=== PATIENT | male | born 1935 | race Caucasian/White ===

== ENCOUNTER 2016-10-12 10:22 | Outpatient (CLI) | payer MEDICARE, BC, OTHER | END 2016-10-12 23:59 | DX: R19.7 Diarrhea, unspecified (principal) ==

== ENCOUNTER 2016-10-23 08:00 | Outpatient (CLI) | payer MEDICARE, BC, OTHER | END 2016-10-23 23:59 | DX: R53.83 Other fatigue (principal); G20 Parkinson's disease; E55.9 Vitamin D deficiency, unspecified; I10 Essential (primary) hypertension; K58.9 Irritable bowel syndrome, unspecified; Z12.5 Encounter for screening for malignant neoplasm of prostate; N18.3 Chronic kidney disease, stage 3 (moderate) | CPT/HCPCS: 36415; 80053; 82306; 84443; 85025; G0103 ==

== ENCOUNTER 2016-10-27 05:00 | Outpatient (CLI) | payer MEDICARE, BC, OTHER | END 2016-10-27 05:01 | disposition home or self-care (01) | DX: R19.7 Diarrhea, unspecified (principal) ==

== ENCOUNTER 2016-10-31 12:30 | Day surgery (SDC) | payer MEDICARE, BC, OTHER ==
[2016-10-31] MEDS ORDERED: LACTATED RINGERS 1,000 ML IV ONE (13:08)
[2016-10-31] MEDS ORDERED: fentaNYL 100 MCG/2 ML VIAL IVP ONE (15:09)
[2016-10-31] MEDS ORDERED: MIDAZOLAM 2 MG/2 ML VIAL IVP ONE (15:09)
== END 2016-10-31 12:31 | disposition home or self-care (01) ==
PROC: 0DBE8ZX Excision of Large Intestine, Via Natural or Artificial Opening Endoscopic, Diagnostic (ICD-10-PCS; 2016-10-31)
PROC: 0DBM8ZX Excision of Descending Colon, Via Natural or Artificial Opening Endoscopic, Diagnostic (ICD-10-PCS; principal; 2016-10-31 14:00)
DX: R19.7 Diarrhea, unspecified (principal); K52.832 Lymphocytic colitis; D12.4 Benign neoplasm of descending colon; K57.30 Diverticulosis of large intestine without perforation or abscess without bleeding; R23.3 Spontaneous ecchymoses; K64.0 First degree hemorrhoids; R63.4 Abnormal weight loss; K21.9 Gastro-esophageal reflux disease without esophagitis; Z88.2 Allergy status to sulfonamides; Z68.27 Body mass index [BMI] 27.0-27.9, adult
CPT/HCPCS: 45380; 45385; J7120

== ENCOUNTER 2017-01-31 12:33 | Outpatient (CLI) | payer MEDICARE, BC, OTHER | END 2017-01-31 12:34 | LOC: LAB.WCP 12:33 | PROVIDERS: ATTEND Family Medicine | DX: K52.9 Noninfective gastroenteritis and colitis, unspecified (principal) | CPT/HCPCS: 81599 ==

== ENCOUNTER 2017-04-11 09:04 | Outpatient (CLI) | payer MEDICARE, BC, OTHER | END 2017-04-11 09:05 | disposition home or self-care (01) | LOC: DI 09:04 | PROVIDERS: ATTEND Internal Medicine Cardiovascular Disease | DX: R00.2 Palpitations (principal); I45.2 Bifascicular block; E78.01 Familial hypercholesterolemia; G47.20 Circadian rhythm sleep disorder, unspecified type; R25.9 Unspecified abnormal involuntary movements | CPT/HCPCS: 93306 ==

== ENCOUNTER 2017-05-02 14:35 | Outpatient (CLI) | payer MEDICARE, BC, OTHER ==
[2017-05-02 13:56] LABS: HEMOGLOBIN A1C 0.53 g/dL
== END 2017-05-02 14:36 | disposition home or self-care (01) ==
LOC: LAB.WCP 14:35
PROVIDERS: ATTEND Family Medicine
DX: R73.01 Impaired fasting glucose (principal)
CPT/HCPCS: 36415; 82947; 83036

== ENCOUNTER 2017-05-09 15:03 | Outpatient (CLI) | payer MEDICARE, BC, OTHER ==
[2017-05-09 14:02] LABS: CHOL/HDL RATIO 3.5 (<5.0); CHOLESTEROL 212 mg/dL; HDL CHOLESTEROL 60 mg/dL; TRIGLYCERIDES 152 mg/dL; VLDL CHOLESTEROL 30 mg/dL
== END 2017-05-09 15:04 | disposition home or self-care (01) ==
LOC: LAB.WCP 15:03
PROVIDERS: ATTEND Family Medicine
DX: R73.01 Impaired fasting glucose (principal); E78.5 Hyperlipidemia, unspecified
CPT/HCPCS: 36415; 80061

== ENCOUNTER 2017-05-19 03:02 | Outpatient (CLI) | payer MEDICARE, BC, OTHER | END 2017-05-19 03:03 | disposition critical access hospital (66) | LOC: EMS 03:02 | PROVIDERS: ATTEND Surgery | DX: R53.1 Weakness (principal) | CPT/HCPCS: A0425; A0427 ==

== ENCOUNTER 2017-05-19 03:20 | Emergency (ER) | payer MEDICARE, BC, OTHER ==
[2017-05-19] MEDS ORDERED: SODIUM CHLORIDE 0.9% 1,000 ML IV ONE (03:30)
[2017-05-19] MEDS ORDERED: ACETAMINOPHEN 325 MG TABLET PO STA (03:30)
[2017-05-19 03:38] LABS: BASOPHILS # (AUTO) 0.1 10^3/uL (0.0-0.1); BASOPHILS % (AUTO) 0.6 %; EOSINOPHILS # (AUTO) 0.1 10^3/uL (0.0-0.7); EOSINOPHILS % (AUTO) 1.2 %; HCT - HEMATOCRIT 40.8 % (42.0-52.0); HGB - HEMOGLOBIN 14.2 g/dL (14.0-18.0); LYMPHOCYTES # (AUTO) 0.8 10^3/uL (1.5-3.5); LYMPHOCYTES % (AUTO) 7.2 %; MEAN CORPUSCULAR HEMOGLOBIN 33.3 pg (27.0-31.0); MEAN CORPUSCULAR HGB CONC 34.7 g/dL (32.0-36.0); MEAN PLATELET VOLUME 7.7 fL (7.4-11.4); MONOCYTES # (AUTO) 0.6 10^3/uL (0.0-1.0); MONOCYTES % (AUTO) 5.3 %; NEUTROPHILS # (AUTO) 9.4 10^3/uL (1.5-6.6); NEUTROPHILS % (AUTO) 85.7 %; RED BLOOD COUNT 4.26 10^6/uL (4.70-6.10); RED CELL DISTRIBUTION WIDTH 13.2 % (12.0-15.0); UNCORRECTED WHITE BLOOD COUNT 10.9 x10^3/uL; WHITE BLOOD COUNT 10.9 x10^3/uL (4.8-10.8)
[2017-05-19 03:48] LABS: ALBUMIN/GLOBULIN RATIO 1.3 (1.0-2.2); BILIRUBIN,TOTAL 0.6 mg/dL (0.2-1.0); CREATININE 1.7 mg/dL (0.6-1.2); POTASSIUM 3.9 mmol/L (3.5-5.0); TOTAL PROTEIN 6.2 g/dL (6.7-8.2)
[2017-05-19] MEDS ORDERED: ACETAMINOPHEN 325 MG TABLET PO ONE (03:54)
--- NOTE | 2017-05-19 04:55 | XRAY Preliminary Report ---
Exam: XR HIP W/PELVIS 2-3V LT IMPRESSION: 1. Left hip prosthesis. 2. No acute fracture or dislocation seen. [facility] SITE ID: [id number]
--- NOTE | 2017-05-19 04:57 | XRAY Preliminary Report ---
Exam: XR CHEST 2 VIEW PA/LAT IMPRESSION: 1. Mild cardiomegaly. No acute abnormality seen. [facility] SITE ID: [id number]
--- NOTE | 2017-05-19 04:58 | XRAY Report ---
EXAM: LEFT HIP AND PELVIS RADIOGRAPHY EXAM DATE: 05/19/2017 04:38 AM. HISTORY: Hip pain, hx of replacement. COMPARISONS: 06/06/2006. TECHNIQUE: 1 view of the pelvis and 1 view of the hip. FINDINGS: Bones: Left hip prosthesis. No acute fracture seen. Joints: No dislocation. Soft Tissues: Penile prosthesis. IMPRESSION: 1. Left hip prosthesis. 2. No acute fracture or dislocation seen. [facility] Referring Provider Line: [phone] SITE ID: [id number]
--- NOTE | 2017-05-19 05:00 | XRAY Report ---
EXAM: CHEST RADIOGRAPHY EXAM DATE: 05/19/2017 04:37 AM. CLINICAL HISTORY: Hypoxia fever. COMPARISON: None. TECHNIQUE: 2 views. FINDINGS: Lungs/Pleura: No alveolar consolidation or pleural effusion. No pneumothorax. Mediastinum: Mild cardiomegaly. Tortuous aorta. Other: Osteopenia. IMPRESSION: 1. Mild cardiomegaly. No acute abnormality seen. [facility] Referring Provider Line: [phone] SITE ID: [id number]
[2017-05-19 05:04] LABS: BILIRUBIN,URINE NEGATIVE (NEGATIVE); UA CHARGE (STRIP ONLY) YES; UR CULTURE IF IND NOT INDICATED
--- NOTE | 2017-05-19 05:05 | ED Physician Documentation ---
History of Present Illness - Stated complaint Stated Complaint: WEAKNESS/CHILLS - Chief complaint Chief Complaint: Neuro - History obtained from History obtained from: Patient, Family, EMS - History of Present Illness Timing: Today - Additonal information Additional information: Patient is an 82 year old male with a history of parkinson's disease who is presenting to the emergency department for shaking and generalized weakness. According to patient, family and ems, this evening when patient got up to go to the bathroom he had shaking and generalized weakness. Patient was unable to make it to the bathroom and had to let himself to the ground. Family called ems who brought the patient in for evaluation. Review of Systems Constitutional: reports: Other (shakes). denies: Fever, Chills, Sweats Eyes: denies: Decreased vision, Photophobia Ears: denies: Ear pain, Drainage/discharge Nose: denies: Congestion, Sinus pressure / pain Throat: denies: Sore throat Cardiac: denies: Chest pain / pressure, Palpitations, Calf pain Respiratory: denies: Dyspnea, Cough, Wheezing GI: denies: Nausea, Vomiting, Constipation, Diarrhea : denies: Dysuria, Frequency, Hesitancy, Unable to Void, Incontinent, Hematuria Skin: denies: Rash, Lesions, Abrasion (s) Musculoskeletal: reports: Joint pain Neurologic: reports: Generalized weakness. denies: Focal weakness, Numbness, Difficulty speaking, Syncope, Seizure, Head injury, LOC Immunocompromised: denies: Immunocompromised PD PAST MEDICAL HISTORY - Past Medical History Past Medical History: Yes Cardiovascular: None Respiratory: None Neuro: Parkinson's, Tremors Endocrine/Autoimmune: None Psych: Depression, Anxiety Musculoskeletal: Osteoarthritis, Gout, Fatigue, Chronic back pain - Past Surgical History Past Surgical History: Yes General: Appendectomy, Colonoscopy Ortho: Hip replacement HEENT: Cataracts, Tonsil/Adenoidectomy - Present Medications Home Medications: Ambulatory Orders Medication Instructions Recorded Confirmed Levothyroxine Sodium [Synthroid] 88 mcg PO DAILY 11/09/13 05/19/17 Omeprazole [Prilosec] 40 mg PO QPM 11/09/13 05/19/17 predniSONE [Deltasone] 20 mg PO 0800 PRN 11/09/13 05/19/17 Acyclovir 1 tab PO BID 05/19/17 05/19/17 Aspirin 1 tab PO DAILY 05/19/17 05/19/17 Atorvastatin Calcium 1 tab PO QPM 05/19/17 05/19/17 Carbidopa/Levodopa [Carbidopa-Levo 1 tab PO TID 05/19/17 05/19/17 ER 25-100 Tab] Cyanocobalamin [Vitamin B-12] 1,000 IM 05/19/17 Hydralazine HCl 10 mg PO DAILY PRN 05/19/17 05/19/17 Latanoprost 0.005% Ophth Drops 1 drops EACHEYE QPM 05/19/17 05/19/17 [Xalatan Ophth Drops] Ubidecarenone/Vitamin E Mixed 1 cap PO QPM 05/19/17 05/19/17 [Crd12-Kuj E 200 mg-20 Unit Sfg] diphenhydrAMINE [Benadryl] 25 mg PO DAILY PRN 05/19/17 05/19/17 - Allergies Allergies/Adverse Reactions: Allergies Allergy/AdvReac Type Severity Reaction Status Date / Time Sulfa (Sulfonamide Allergy Intermediate Hives Verified 05/19/17 03:32 Antibiotics) - Social History Does the pt smoke?: No Smoking Status: Never smoker Does the pt drink ETOH?: Yes ETOH Use: Wine, Beer, Liquor Does the pt have substance abuse?: No - Immunizations Immunizations are current?: Yes PD ED PE NORMAL - Vitals Vital signs reviewed: Yes - General General: Alert and oriented X 3, No acute distress, Well developed/nourished - HEENT HEENT: Atraumatic, PERRL, Moist mucous membranes, Pharynx benign, Dentition benign - Neck Neck: Supple, no meningeal sign, No JVD - Cardiac Cardiac: RRR, No murmur - Respiratory Respiratory: No respiratory distress, Clear bilaterally - Abdomen Abdomen: Soft, Non tender, Non distended - Derm Derm: Normal color, Warm and dry, No rash - Neuro Neuro: Alert and oriented X 3, 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, No motor deficit, No sensory deficit, Normal speech - Psych Psych: Normal mood, Normal affect PD ED PE EXPANDED - Extremities Extremities: Left hip (mild tenderness to palpation, previous scar, no warmth or erythema), Motor intact, Sensory intact, Vascular intact, Tendon intact Results - Vitals Vitals: Vital Signs - 24 hr 05/19/17 05/19/17 05/19/17 03:20 04:51 05:29 Temperature 37.6 C H 37.3 C 36.3 C L Heart Rate 95 87 91 Respiratory 27 H 16 18 Rate Blood Pressure 152/80 H 138/67 H 120/58 L O2 Saturation 94 98 97 Oxygen O2 Source Room air Oxygen Flow Rate 2 - EKG (time done) 0346 Rate: Rate (enter#) (86) Rhythm: NSR Boyds: LAD, Anterior hemiblock Intervals: RBBB QRS: Normal Ischemia: Normal ST segments Compare to prior EKG: Old EKG unavailable - Labs Labs: Laboratory Tests 05/19/17 05/19/17 05/19/17 03:28 03:28 03:28 WBC 10.9 H RBC 4.26 L Hgb 14.2 Hct 40.8 L MCV 96.0 H MCH 33.3 H MCHC 34.7 RDW 13.2 Plt Count 179 MPV 7.7 Neut # 9.4 H Lymph # 0.8 L [place] # 0.6 Eos # 0.1 Baso # 0.1 Absolute Nucleated RBC 0.00 Nucleated RBC % 0.0 Sodium 137 Potassium 3.9 Chloride 101 Carbon Dioxide 25 Anion Gap 11.0 BUN 22 H Creatinine 1.7 H Estimated GFR (MDRD) 39 L Glucose 102 H Lactic Acid Calcium 9.0 Total Bilirubin 0.6 AST 19 ALT 10 Alkaline Phosphatase 58 Troponin I < 0.04 B-Natriuretic Peptide Total Protein 6.2 L Albumin 3.5 Globulin 2.7 Albumin/Globulin Ratio 1.3 Lipase 25 Urine Color Urine Clarity Urine pH Ur Specific [place] Urine Protein Urine Glucose (UA) Urine Ketones Urine Occult Blood Urine Nitrite Urine Bilirubin Urine Urobilinogen Ur Leukocyte Esterase Ur Microscopic Review Urine Culture Comments Influenza A (Rapid) Influenza B (Rapid) Influenza Types A,B Ag 05/19/17 05/19/17 05/19/17 03:28 03:57 04:41 WBC RBC Hgb Hct MCV MCH MCHC RDW Plt Count MPV Neut # Lymph # [place] # Eos # Baso # Absolute Nucleated RBC Nucleated RBC % Sodium Potassium Chloride Carbon Dioxide Anion Gap BUN Creatinine Estimated GFR (MDRD) Glucose Lactic Acid 1.9 Calcium Total Bilirubin AST ALT Alkaline Phosphatase Troponin I B-Natriuretic Peptide 25 Total Protein Albumin Globulin Albumin/Globulin Ratio Lipase Urine Color Urine Clarity Urine pH Ur Specific [place] Urine Protein Urine Glucose (UA) Urine Ketones Urine Occult Blood Urine Nitrite Urine Bilirubin Urine Urobilinogen Ur Leukocyte Esterase Ur Microscopic Review Urine Culture Comments Influenza A (Rapid) Negative Influenza B (Rapid) Negative Influenza Types A,B Ag - 05/19/17 04:50 WBC RBC Hgb Hct MCV MCH MCHC RDW Plt Count MPV Neut # Lymph # [place] # Eos # Baso # Absolute Nucleated RBC Nucleated RBC % Sodium Potassium Chloride Carbon Dioxide Anion Gap BUN Creatinine Estimated GFR (MDRD) Glucose Lactic Acid Calcium Total Bilirubin AST ALT Alkaline Phosphatase Troponin I B-Natriuretic Peptide Total Protein Albumin Globulin Albumin/Globulin Ratio Lipase Urine Color YELLOW Urine Clarity CLEAR Urine pH 6.0 Ur Specific [place] 1.025 Urine Protein NEGATIVE Urine Glucose (UA) NEGATIVE Urine Ketones NEGATIVE Urine Occult Blood NEGATIVE Urine Nitrite NEGATIVE Urine Bilirubin NEGATIVE Urine Urobilinogen 0.2 (NORMAL) Ur Leukocyte Esterase NEGATIVE Ur Microscopic Review NOT INDICATED Urine Culture Comments NOT INDICATED Influenza A (Rapid) Influenza B (Rapid) Influenza Types A,B Ag - Rads (name of study) hip x-ray Radiology: Final report received (hip prothesis no acute abnormality) chest x-ray Radiology: Final report received (cardiomegaly, no other acute findings.) PD MEDICAL DECISION MAKING - ED course Complexity details: reviewed old records, reviewed results, re-evaluated patient , considered differential, d/w patient, d/w family ED course: Patient was seen and examined at bedside. IV access was gained and labs were drawn. Patient was treated with fluids and tylenol. ekg showed no acute ischemic changes. Patients diagnostics showed only a mild leukocytosis but no source of infection. While the probability of the patient developing a worsening infection was a real possibility there was no indication for admission. before discharge patient had full strength and was able to ambulate without difficulty. Patient and family were given detailed discharge and return instructions and were stable for discharge with outpatient follow up. Departure - Departure Disposition: 01 Home, Self Care Clinical Impression: Infection Condition: Good Instructions: ED Fever Unconf Cause Follow-Up: primary, care provider [Other] - Within 3 Days Comments: Your diagnostics today were within normal limits. I'm guessing that it was an early sign of infection but there is no focal source. You may develop worsening symptoms over the next couple of days. You should follow up with your doctor or return to the emergency department if you start developing fevers or have a focal source of infection. You should take motrin and tylenol for any fevers. Make sure you stay well hydrated and get plenty of rest.
[2017-05-19 05:30] VITALS: BP 120/58
== END 2017-05-19 05:41 | disposition home or self-care (01) ==
LOC: EDUNIT# → ED 03:20
DX: D72.829 Elevated white blood cell count, unspecified (principal); B99.9 Unspecified infectious disease; I45.2 Bifascicular block; R94.31 Abnormal electrocardiogram [ECG] [EKG]; G20 Parkinson's disease; M19.90 Unspecified osteoarthritis, unspecified site; M10.9 Gout, unspecified; Z79.82 Long term (current) use of aspirin; Z96.642 Presence of left artificial hip joint
CPT/HCPCS: 36415; 71020; 73502; 80053; 81003; 83605; 83690; 83880; 84484; 85025; 87040; 87275; 87276; 93005; 96360; 99284; 99285; A9270; 81001; 87086

== ENCOUNTER 2017-06-07 12:32 | Outpatient (CLI) | payer MEDICARE, BC, OTHER ==
--- NOTE | 2017-06-07 14:52 | MRI Report ---
EXAM: MRI LUMBAR SPINE WITHOUT CONTRAST EXAM DATE: 06/07/2017 01:28 PM. CLINICAL HISTORY: WEAKNESS OF BOTH LOWER EXTREMITIES. COMPARISON: Lumbar radiograph 08/10/2013. TECHNIQUE: Multiplanar, multisequence T1-weighted and fluid-sensitive sequences of the lumbar spine f rom T12 to S1 without contrast. Other: None. FINDINGS: Spinal Cord: The conus terminates at L1-L2. The conus medullaris and cauda equina are unremarkable. Alignment: There is grade 1/2 anterolisthesis of L5 on S1 that appears to be due to bilateral pars de fects. No scoliosis or spondylolisthesis. Bone Marrow: Five [id number] lumbar vertebral bodies are assumed. There is heterogenous T1/T2 si gnal hyperintensity seen within the vertebral bodies. No discrete mass or masslike edema seen. Findin g may represent marrow reconversion. There is moderate endplate degenerative changes severe loss of disk height and disk desiccation seen at L5-S1. No acute fracture. No abnormal marrow edema. Disk Levels/Facets: T12-L1: Unremarkable. L1-L2: Unremarkable. L2-L3: Small posterior disk bulge, ligamentum flavum thickening, facet disease, and prominent dorsal epidural fat. Fluid is seen within the facets bilaterally. Mild spinal canal stenosis. Mild bilateral neural foraminal narrowing. L3-L4: Small posterior disk bulge, ligamentum flavum thickening, facet disease, prominent dorsal epid ural fat. Fluid is seen within the facets bilaterally. Mild spinal canal stenosis. Mild to moderate r ight and mild left neuroforaminal narrowing. L4-L5: Small posterior disk bulge, ligamentum flavum thickening, negative facet disease. Minimal spin al canal stenosis. Fluid is seen within the facets bilaterally. Mild to moderate bilateral neural for aminal narrowing. L5-S1: Uncovering of the endplates. Bilateral facet disease. Effacement of the lateral recesses. Mode rate to severe bilateral neural foraminal narrowing. Musculature: Mild fatty atrophy of the multifidus muscles. Other: There is colonic diverticulosis with no evidence of diverticulitis. IMPRESSION: 1. Grade 1/2 anterolisthesis of L5 on S1 secondary to bilateral pars defects. 2. Multilevel degenerative changes. L2-L3: mild spinal canal stenosis. Mild bilateral neural foraminal narrowing. L3-L4: mild spinal canal stenosis. Mild to moderate right and mild left neuroforaminal narrowing. L4-L5: mild to moderate bilateral neural foraminal narrowing. L5-S1: effacement of the lateral recesses. Moderate to severe bilateral neural foraminal narrowing. 3. There is colonic diverticulosis with no evidence of diverticulitis. Comment: The following findings are so common in adults without low back pain that while we report th eir presence, they must be interpreted with caution and in the context of the clinical situation. (Re bud Delacruz et al, Spine 2001) Prevalence of findings in patients without low back pain: Disk degeneration (any evidence): 92% Disk desiccation/T2 signal loss: 83% Disk height loss: 56% Disk bulge: 64% Disk protrusion: 32% Annular tear/high intensity zone: 38% [facility] Referring Provider Line: [phone] SITE ID: [id number]
== END 2017-06-07 12:33 | disposition home or self-care (01) ==
LOC: DI 12:32
DX: M43.07 Spondylolysis, lumbosacral region (principal); M47.896 Other spondylosis, lumbar region; M47.897 Other spondylosis, lumbosacral region; M51.37 Other intervertebral disc degeneration, lumbosacral region; K57.30 Diverticulosis of large intestine without perforation or abscess without bleeding
CPT/HCPCS: 72148

== ENCOUNTER 2017-10-01 08:00 | Outpatient (CLI) | payer MEDICARE, BC, OTHER ==
[2017-10-01 13:39] LABS: HB2 TOTAL 16.1 g/dL; HEMOGLOBIN A1C 0.55 g/dL; HEMOGLOBIN A1C % 5.3 % (4.6-6.2)
[2017-10-01 14:00] LABS: ALBUMIN 3.8 g/dL (3.2-5.5); ALBUMIN/GLOBULIN RATIO 1.4 (1.0-2.2); ALKALINE PHOSPHATASE 50 IU/L (42-121); ALT ALANINE AMINOTRANSFERASE 20 IU/L (10-60); AST ASPARTATE AMINOTRANSFERASE 22 IU/L (10-42); BILIRUBIN,TOTAL 1.2 mg/dL (0.2-1.0); BUN - BLOOD UREA NITROGEN 26 mg/dL (6-20); CALCIUM 9.3 mg/dL (8.5-10.3); CARBON DIOXIDE - CO2 26 mmol/L (21-32); CHLORIDE 107 mmol/L (101-111); CHOLESTEROL 195 mg/dL; CREATININE 1.8 mg/dL (0.6-1.2); GFR - MDRD 36 (>89); GLUCOSE 89 mg/dL (70-100); HDL CHOLESTEROL 49 mg/dL; LDL CHOLESTEROL,CALCULATED 114 mg/dL; LDL/HDL RATIO 2.3 (<3.6); SODIUM 140 mmol/L (135-145); TOTAL PROTEIN 6.6 g/dL (6.7-8.2); VLDL CHOLESTEROL 32 mg/dL
== END 2017-10-01 08:01 | disposition home or self-care (01) ==
LOC: LAB.WCP 08:00
PROVIDERS: ATTEND Internal Medicine Cardiovascular Disease
DX: E03.9 Hypothyroidism, unspecified (principal); I12.9 Hypertensive chronic kidney disease with stage 1 through stage 4 chronic kidney disease, or unspecified chronic kidney disease; N18.3 Chronic kidney disease, stage 3 (moderate); E55.9 Vitamin D deficiency, unspecified; R73.01 Impaired fasting glucose; E78.01 Familial hypercholesterolemia
CPT/HCPCS: 36415; 80053; 80061; 82306; 83036; 83721; 84443

== ENCOUNTER 2017-12-04 08:00 | Outpatient (CLI) | payer MEDICARE, BC, OTHER | END 2017-12-04 08:01 | disposition home or self-care (01) | LOC: LAB.WCP 08:00 | PROVIDERS: ATTEND Internal Medicine Endocrinology, Diabetes & Metabolism | DX: E03.9 Hypothyroidism, unspecified (principal) | CPT/HCPCS: 36415; 84443 ==

== ENCOUNTER 2018-03-06 08:50 | Outpatient (CLI) | payer MEDICARE, BC, OTHER ==
[2018-03-06 12:31] LABS: BASOPHILS % (AUTO) 0.6 %; EOSINOPHILS # (AUTO) 0.2 10^3/uL (0.0-0.7); EOSINOPHILS % (AUTO) 2.4 %; HGB - HEMOGLOBIN 15.1 g/dL (14.0-18.0); LYMPHOCYTES # (AUTO) 2.1 10^3/uL (1.5-3.5); LYMPHOCYTES % (AUTO) 28.6 %; MEAN CORPUSCULAR HEMOGLOBIN 32.9 pg (27.0-31.0); MEAN CORPUSCULAR HGB CONC 34.3 g/dL (32.0-36.0); MONOCYTES # (AUTO) 0.6 10^3/uL (0.0-1.0); NEUTROPHILS # (AUTO) 4.4 10^3/uL (1.5-6.6); NEUTROPHILS % (AUTO) 60.4 %; PLT - PLATELET COUNT 169 10^3/uL (130-450); RED CELL DISTRIBUTION WIDTH 13.2 % (12.0-15.0); WHITE BLOOD COUNT 7.2 x10^3/uL (4.8-10.8)
[2018-03-06 13:16] LABS: HB2 TOTAL 16.2 g/dL; HEMOGLOBIN A1C 0.52 g/dL; HEMOGLOBIN A1C % 5.1 % (4.6-6.2)
[2018-03-06 13:20] LABS: ALBUMIN 3.7 g/dL (3.2-5.5); ALBUMIN/GLOBULIN RATIO 1.3 (1.0-2.2); BILIRUBIN,TOTAL 1.3 mg/dL (0.2-1.0); CALCIUM 9.1 mg/dL (8.5-10.3); CREATININE 1.8 mg/dL (0.6-1.2); TOTAL PROTEIN 6.5 g/dL (6.7-8.2)
== END 2018-03-06 08:51 ==
LOC: LAB.WCP 08:50
PROVIDERS: ATTEND Family Medicine
DX: N18.3 Chronic kidney disease, stage 3 (moderate) (principal); I10 Essential (primary) hypertension; R73.01 Impaired fasting glucose
CPT/HCPCS: 36415; 80053; 83036; 85025

== ENCOUNTER 2018-04-22 09:00 | Outpatient (CLI) | payer MEDICARE, BC, OTHER ==
[2018-04-22 14:49] LABS: BASOPHILS # (AUTO) 0.1 10^3/uL (0.0-0.1); EOSINOPHILS # (AUTO) 0.2 10^3/uL (0.0-0.7); EOSINOPHILS % (AUTO) 2.8 %; HGB - HEMOGLOBIN 15.5 g/dL (14.0-18.0); LYMPHOCYTES # (AUTO) 1.7 10^3/uL (1.5-3.5); LYMPHOCYTES % (AUTO) 25.3 %; MEAN CORPUSCULAR HEMOGLOBIN 33.4 pg (27.0-31.0); MEAN CORPUSCULAR HGB CONC 34.9 g/dL (32.0-36.0); MEAN CORPUSCULAR VOLUME 95.8 fL (80.0-94.0); MEAN PLATELET VOLUME 8.8 fL (7.4-11.4); MONOCYTES # (AUTO) 0.6 10^3/uL (0.0-1.0); MONOCYTES % (AUTO) 8.5 %; NEUTROPHILS # (AUTO) 4.2 10^3/uL (1.5-6.6); NEUTROPHILS % (AUTO) 62.4 %; PLT - PLATELET COUNT 175 10^3/uL (130-450); RED BLOOD COUNT 4.62 10^6/uL (4.70-6.10); RED CELL DISTRIBUTION WIDTH 14.3 % (12.0-15.0); WHITE BLOOD COUNT 6.8 x10^3/uL (4.8-10.8)
[2018-04-22 15:04] LABS: CHOL/HDL RATIO 4.3 (<5.0); CHOLESTEROL 230 mg/dL; HDL CHOLESTEROL 54 mg/dL; LDL CHOLESTEROL,CALCULATED 137 mg/dL; LDL/HDL RATIO 2.5 (<3.6); MAGNESIUM 1.7 mg/dL (1.7-2.8); VLDL CHOLESTEROL 39 mg/dL
[2018-04-22 15:57] LABS: ALBUMIN 3.8 g/dL (3.2-5.5); ALBUMIN/GLOBULIN RATIO 1.3 (1.0-2.2); BILIRUBIN,TOTAL 1.1 mg/dL (0.2-1.0); CALCIUM 9.2 mg/dL (8.5-10.3); CREATININE 1.8 mg/dL (0.6-1.2); TOTAL PROTEIN 6.7 g/dL (6.7-8.2)
== END 2018-04-22 09:01 ==
LOC: LAB.WCP 09:00
PROVIDERS: ATTEND Internal Medicine Cardiovascular Disease
DX: N18.3 Chronic kidney disease, stage 3 (moderate) (principal); I50.9 Heart failure, unspecified
CPT/HCPCS: 36415; 80053; 80061; 83721; 83735; 85025

== ENCOUNTER 2018-06-27 16:18 | Outpatient (CLI) | payer MEDICARE, BC, OTHER ==
--- NOTE | 2018-06-28 21:48 | Ultrasound Report ---
Reason: CHRONIC KIDNEY DISEASE,STATE 3 Procedure Date: 06/27/2018 Accession Number: [id number] / [id number] Procedure: US - Retroperitoneal CPT Code: FULL RESULT: EXAM: RENAL ULTRASOUND EXAM DATE: 06/27/2018 05:54 PM. CLINICAL HISTORY: CHRONIC KIDNEY DISEASE,STATE 3. COMPARISON: None. TECHNIQUE: Real-time scanning was performed with static images obtained. FINDINGS: Right Kidney: 9.2 x 4.2 x 4.5 cm. No shadowing stones, contour-deforming masses, or hydronephrosis. 1.7 cm inferior pole cyst. Left Kidney: 9.6 x 5.5 x 7.0 cm. No shadowing stones, contour-deforming masses, or hydronephrosis. 1.5 cm calculus in the inferior pole. Bladder: Partially distended bladder is unremarkable. The prevoid bladder volume was 106 cc. The postvoid bladder volume was 6.4 cc. IMPRESSION: 1.5 cm left inferior pole calculus. No hydronephrosis. [facility]
== END 2018-06-27 16:19 | disposition home or self-care (01) ==
LOC: DI 16:18
PROVIDERS: ATTEND Internal Medicine Nephrology
DX: N18.3 Chronic kidney disease, stage 3 (moderate) (principal); N20.0 Calculus of kidney
CPT/HCPCS: 76770

== ENCOUNTER 2018-09-29 14:42 | Outpatient (CLI) | payer MEDICARE, BC, OTHER | END 2018-09-29 14:43 | disposition home or self-care (01) | LOC: LAB 14:42 | PROVIDERS: ATTEND Internal Medicine Endocrinology, Diabetes & Metabolism | DX: E03.9 Hypothyroidism, unspecified (principal) | CPT/HCPCS: 36415; 84443 ==

== ENCOUNTER 2018-11-03 08:00 | Outpatient (CLI) | payer MEDICARE, BC, OTHER ==
[2018-11-03 13:02] LABS: ALBUMIN 3.7 g/dL (3.2-5.5); CREATININE 1.7 mg/dL (0.6-1.2); PHOSPHORUS 2.8 mg/dL (2.5-4.6)
[2018-11-03 13:09] LABS: BILIRUBIN,URINE NEGATIVE (NEGATIVE); GLUCOSE, URINE (UA) NEGATIVE (NEGATIVE); KETONES,URINE (UA) NEGATIVE (NEGATIVE); LEUKOCYTE ESTERASE, URINE NEGATIVE (NEGATIVE); NITRITE,URINE NEGATIVE (NEGATIVE); OCCULT BLOOD,URINE TRACE-INTA (NEGATIVE); PROTEIN,URINE TRACE mg/dL (NEGATIVE); UROBILINOGEN,URINE 1 (NORMAL) E.U./dL (NORMAL)
[2018-11-03 13:11] LABS: CLARITY,URINE CLEAR (CLEAR)
[2018-11-03 13:24] LABS: BACTERIA,URINE Rare /HPF (None Seen); RBC,URINE 0-5 /HPF (0-5); SQUAMOUS EPITHELIAL CELL,UR RARE Squamous (<= Few)
== END 2018-11-03 23:59 | disposition home or self-care (01) ==
LOC: LAB.WCP 08:00
PROVIDERS: ATTEND Internal Medicine Nephrology
DX: N18.3 Chronic kidney disease, stage 3 (moderate) (principal)
CPT/HCPCS: 36415; 80069; 81001; 82306

== ENCOUNTER 2019-05-13 11:22 | Outpatient (CLI) | payer MEDICARE, BC, OTHER ==
[2019-05-13 19:10] LABS: BASOPHILS # (AUTO) 0.1 10^3/uL (0.0-0.1); BASOPHILS % (AUTO) 1.2 %; EOSINOPHILS # (AUTO) 0.2 10^3/uL (0.0-0.7); EOSINOPHILS % (AUTO) 2.5 %; HGB - HEMOGLOBIN 15.2 g/dL (14.0-18.0); LYMPHOCYTES # (AUTO) 1.7 10^3/uL (1.5-3.5); LYMPHOCYTES % (AUTO) 28.2 %; MEAN CORPUSCULAR HEMOGLOBIN 31.9 pg (27.0-31.0); MEAN CORPUSCULAR HGB CONC 33.5 g/dL (32.0-36.0); MEAN CORPUSCULAR VOLUME 95.2 fL (80.0-94.0); MEAN PLATELET VOLUME 11.1 fL (7.4-11.4); MONOCYTES # (AUTO) 0.5 10^3/uL (0.0-1.0); MONOCYTES % (AUTO) 8.4 %; NEUTROPHILS # (AUTO) 3.6 10^3/uL (1.5-6.6); NEUTROPHILS % (AUTO) 59.5 %; PLT - PLATELET COUNT 209 10^3/uL (130-450); RED BLOOD COUNT 4.77 10^6/uL (4.70-6.10); RED CELL DISTRIBUTION WIDTH 13.4 % (12.0-15.0); WHITE BLOOD COUNT 6.1 x10^3/uL (4.8-10.8)
[2019-05-13 19:52] LABS: ALBUMIN 3.8 g/dL (3.2-5.5); ALBUMIN/GLOBULIN RATIO 1.3 (1.0-2.2); ALKALINE PHOSPHATASE 59 IU/L (42-121); ALT ALANINE AMINOTRANSFERASE 14 IU/L (10-60); AST ASPARTATE AMINOTRANSFERASE 16 IU/L (10-42); BILIRUBIN,TOTAL 1.3 mg/dL (0.2-1.0); BUN - BLOOD UREA NITROGEN 26 mg/dL (6-20); CALCIUM 9.3 mg/dL (8.5-10.3); CARBON DIOXIDE - CO2 27 mmol/L (21-32); CHLORIDE 105 mmol/L (101-111); CHOL/HDL RATIO 3.9 (<5.0); CHOLESTEROL 189 mg/dL; CREATININE 1.8 mg/dL (0.6-1.2); GFR - MDRD 36 (>89); GLUCOSE 95 mg/dL (70-100); HDL CHOLESTEROL 49 mg/dL; LDL CHOLESTEROL,CALCULATED 77 mg/dL; LDL/HDL RATIO 1.6 (<3.6); SODIUM 140 mmol/L (135-145); TOTAL PROTEIN 6.8 g/dL (6.7-8.2); VLDL CHOLESTEROL 63 mg/dL
== END 2019-05-13 23:59 | disposition home or self-care (01) ==
LOC: LAB.N 11:22
PROVIDERS: ATTEND Family Medicine
DX: E78.5 Hyperlipidemia, unspecified (principal); E03.9 Hypothyroidism, unspecified; I10 Essential (primary) hypertension
CPT/HCPCS: 36415; 80053; 80061; 83721; 84443; 85025

== ENCOUNTER 2019-06-29 12:48 | Outpatient (CLI) | payer MEDICARE, BC, OTHER ==
[2019-06-29 16:11] VITALS: BP 147/85
--- NOTE | 2019-06-29 16:11 | SLEEP CARE CONSULTATION ---
Information from patient questionnaire entered by Susy Reyes. I have reviewed and concur with the information entered by Susy Reyes. This document represents the service I personally performed and the decisions made by me, Otis Meeks MD, [facility]. History of Present Illness Reason for Visit: New patient Chief Complaint: reports: Insomnia, Unrefreshed sleep, Snoring, Excessive daytime sleepiness, Observed pauses in breathing, Fatigue, Frequent awakenings at night Duration of Symptoms: more than a year Usual bedtime: [id number] Time it takes to fall asleep: 30 minutes or more Snores at night: Yes Observed to quit breathing while asleep: Yes Sleeps alone due to snoring: Yes (sometimes but rarely) Number of times waking at night: 5-6 Reasons for waking at night: reports: Bathroom Toss, Turn, or Twitch while sleeping: Yes Recalls having dreams: Yes Usually gets out of bed at: 0700 Feels refreshed in the morning: No Morning headache: No Sleepy or fatigued during the day: Yes Ever fallen asleep while driving: No Takes day naps: Yes Dreams during day naps: No Prior sleep studies: Yes [facility] and [facility] Additional HPI information: I had the pleasure of seeing Mr. Raman along with his daughter today regarding the possibility of him having a sleep disorder. As you know, he is a 84 year old gentleman who complains of loud snore and excessive daytime sleepiness. He had a sleep study here 5 years ago that was negative for sleep-disordered breathing. The AHI was 1.3. No significant hypoxemia. He did not sleep supine. Since then he was diagnosed with Parkinsons disease and had a transient ischemic attack. He gained 15 lbs. He now snores louder. His mobile mechanic ordered an overnight pulse oximetry which came back showing hypoxemia in more than 25% of the time. Subjective Initial Monroe Sleepiness Scale score: 5 Past Medical History Past Medical History: reports: Arthritis, Gout, Hypothyroidism, GERD, Other (parkinson's disease) Social History The patient's occupation is retired. Patient is and lives in [place]. Have you smoked in the past 12 months: No Cigarettes per day (20/pack): 20 Years of smokin Quit date: 1970 Smoking Pack Years: 15.0 Alcohol use: Yes Alcohol amount and frequency: 2 socially Caffeine use: Yes Caffeine amount and frequency: 1 or 2 / week Family History Family history of sleep disordered breathing: Yes Family Hx Sleep Apnea: Other: Snoring (children) Allergies and Home Medications Drug allergies reviewed: Yes Home medication list reviewed: Yes Review of Systems Weight gain over past 5 years: 15 Cardiovascular: reports: high blood pressure Respiratory: denies: shortness of breath, wheeze, sputum production, chronic cough, other Gastrointestinal: reports: heartburn, difficulty swallowing Urinary: reports: frequency, urgency Neurological: reports: gait or balance problems Psychiatric: denies: Attention Deficit Hyperactivity, anxiety, depression, mood disorder, claustrophobia, other Ear/Nose/Throat: reports: nasal congestion, sinus problems, injury to nose, tonsillectomy, wisdom teeth removed Endocrine: reports: thyroid disease, sluggishness, too hot or cold, increased urination, unexplained weakness Musculoskeletal: reports: joint pain, neck pain, back pain, muscle pain or cramping, mobility problems Immunologic: reports: sneezing, allergies to food or environment Physical Exam Vital signs obtained and entered by: Dr. Meeks Blood Pressure: 147/85 Cuff size: regular Heart Rate: 83 O2 Saturation: 96 Height: 5 ft 9 in Weight: 203 lb Body Mass Index: 29.9 BMI Classification: Overweight Neck circumference: 18.5 Mood/affect: normal HEENT: No craniofacial malformation Nostrils: patent to airflow Turbinates: normal Septum: midline Mouth and throat: narrow oropharynx Soft palate: long Hard palate: normal Uvula: normal Uvula visualization: 25% Mallampati Class III Tongue: normal in size Tonsils: small Chin and jaw: normal size and position Neck: normal w/o lymphadenopathy or thyromegaly Heart: regular rate and rhythm Lungs: clear bilaterally Abdomen: soft, non-tender Extremities: no edema or clubbing Neurologic: intact, no focal deficits Impression and Plan IMPRESSION: 1. Obstructive Sleep Apnea-Hypopnea Syndrome, mild, as previously diagnosed. The patient has had good treatment compliance. The current pressure setting appears effective but not too comfortable. The patient experiences improvement on the treatment. Narrow oropharynx and obesity are common predisposing factors for obstructive sleep apnea-hypopnea syndrome. Pathophysiology of sleep- disordered breathing was discussed. I will order him more supplies. He would like to stay with [facility]. For his comfort, I will lower the pressure range to 4 10 cmH2O and recheck in 2 months. Plan: 1. Prescription made for CPAP supplies. 2. Try Respironics DreamWear nasal cushion mask. 3. Try to lose weight. 4. Return for follow up in about 2 months. I spent 100% of this 20 minute visit face to face with the patient with greater than 50% of this was spent time counseling the patient and coordination of care.
== END 2019-06-29 12:49 | disposition home or self-care (01) ==
LOC: SC 12:48
PROVIDERS: ATTEND Internal Medicine Pulmonary Disease
DX: G47.33 Obstructive sleep apnea (adult) (pediatric) (principal)
CPT/HCPCS: 99203; G0463; 99212

== ENCOUNTER 2019-07-02 09:00 | Outpatient (CLI) | payer MEDICARE, BC, OTHER | END 2019-07-02 23:59 | disposition home or self-care (01) | LOC: LAB.WCP 09:00 | PROVIDERS: ATTEND Family Medicine | DX: R35.0 Frequency of micturition (principal) | CPT/HCPCS: 36415; G0103; 84153 ==

== ENCOUNTER 2019-07-18 19:23 | Outpatient (CLI) | payer MEDICARE, BC, OTHER | END 2019-07-18 19:24 | disposition home or self-care (01) | LOC: SC 19:23 | PROVIDERS: ATTEND Internal Medicine Pulmonary Disease | DX: G47.33 Obstructive sleep apnea (adult) (pediatric) (principal) | CPT/HCPCS: 95810 ==

== ENCOUNTER 2019-08-10 13:19 | Outpatient (CLI) | payer MEDICARE, BC, OTHER ==
--- NOTE | 2019-08-10 16:27 | SLEEP CARE CONSULTATION ---
Information from patient questionnaire entered by Susy Reyes. I have reviewed and concur with the information entered by Susy Reyes. This document represents the service I personally performed and the decisions made by me, Otis Meeks MD, [facility]. History of Present Illness Initial Romance Sleepiness Scale score: 5 Current Romance Sleepiness Scale score: 9 Additional HPI information: HPI: Mr. Raman returned with his daughter for follow up of the sleep study he had on 07/18/19. The polysomnography showed that the patient had poor sleep efficiency due prolonged awakenings during the night and gifts officer awakening. The sleep architecture was abnormal for sleep fragmentation and lack of REM and slow wave sleep (N3). Respiratory monitoring showed very severe obstructive sleep apnea-hypopnea (AHI = 65.3) associated with frequent arousals, oxyhemoglobin desaturation and mild hypoxia (marlee oxygen saturation of 87%). The patient did not sleep supine during this study (supine AHI = 0.0; non-supine = 65.75). Snore was moderate to loud in intensity. There was no significant periodic leg movement of sleep. Cardiac rhythm was normal sinus rhythm with occasional premature ventricular contractions. No abnormal behavior (parasomnia) observed during the night. The patient was informed of these findings. I explained to him the pathophysiology behind obstructive sleep apnea. We then spent quite a bit of time discussing different treatment options. For mild obstructive sleep apnea, surgery and oral appliance are alternatives to nasal CPAP therapy but in moderate or severe cases, nasal CPAP is the most effective and reliable treatm ent. Weight loss in an obese individual is strongly recommended. After some discussion, he opted to go with the nasal CPAP therapy. I explained to him how CPAP machine works and what to expect when using the machine. He is somewhat familiar with the treatment because his children use CPAPs. Allergies and Home Medications Drug allergies reviewed: Yes Home medication list reviewed: Yes Physical Exam Weight: 203 lb Impression and Plan IMPRESSION: 1. Obstructive Sleep Apnea-Hypopnea Syndrome, very severe, associated with mild hypoxemia and sleep fragmentation. Obviously this is the cause of the patients symptoms of cognitive impairment, unrefreshed sleep, and excessive daytime sleepiness. As mentioned above, the patient will be prescribed with an autoCPAP set empirically at 5 15 cmH2O. He will also return for a manual CPAP/BiPAP titration study next week. PLAN: 1. Prescription made for an autoCPAP, heated humidifier, and related supplies. 2. Manual CPAP/BiPAP titration study 3. Attempt to lose weight and avoid alcohol consumption near bedtime. 4. Return for follow up after the titration study. I spent 100% of this visit face to face with the patient with greater than 50% of this was spent time counseling the patient and coordination of care.
== END 2019-08-10 13:20 | disposition home or self-care (01) ==
LOC: SC 13:19
PROVIDERS: ATTEND Internal Medicine Pulmonary Disease
DX: G47.33 Obstructive sleep apnea (adult) (pediatric) (principal)
CPT/HCPCS: 99213; G0463; 99212

== ENCOUNTER 2019-08-18 19:37 | Outpatient (CLI) | payer MEDICARE, BC, OTHER | END 2019-08-18 19:38 | disposition home or self-care (01) | LOC: SC 19:37 | PROVIDERS: ATTEND Internal Medicine Pulmonary Disease | DX: G47.33 Obstructive sleep apnea (adult) (pediatric) (principal); G47.61 Periodic limb movement disorder | CPT/HCPCS: 95811 ==

== ENCOUNTER 2019-11-30 15:51 | Outpatient (CLI) | payer MEDICARE, BC, OTHER ==
--- NOTE | 2019-11-30 13:29 | SLEEP CARE CONSULTATION ---
Information from patient questionnaire entered by Susy Reyes. I have reviewed and concur with the information entered by Susy Reyes. This document represents the service I personally performed and the decisions made by me, Shital Helm, RN, MSN, SURVEYOR [employer]. History of Present Illness Service Date and Time: 11/30/2019 1300 Previous diagnosis: Very Severe, Obstructive Sleep Apnea-Hypopnea Syndrome AHI: 65.3 Reason for follow up: other (2 month with pressure change) Equipment type: CPAP Equipment obtained from: [facility] (getting supplies) Backup mask available: Yes Last cushion change: a few days ago Type of Sleep Study: Polysomnography CPAP Compliance Data - Data Reviewed with Patient Average duration of nightly device use: 6h 20m Compliance rate %: 98.3 Current pressure setting (cmH2O): 8-12 Humidity settin Heated hose settin Average residual AHI: 5.8 (mean 8.8cm/ 90%10.4cmH20) Average large leak: 0s Subjective Patient concerns: reports: mask leak noise (waking spouse ), nasal congestion (uses Afrin before bed and seeing an blast setter / ENT - restarting shots ), dry mouth, nose, throat (mild dry mouth better with higher humidity ). denies: aerophagia, mask discomfort, air blowing in eyes, condensation in mask/hose, epistaxis Observed to snore while using device: Yes (rare -) Current pressure setting perceived as: too high On therapy, patient: reports: sleeping better, awakening more refreshed, being more awake and alert during the day, more rested overall. denies: drowsiness while driving Initial [place] Sleepiness Scale score: 5 Physical Exam Height: 5 ft 9 in Impression and Plan 1. Obstructive Sleep Apnea-Hypopnea Syndrome, very severe, with good treatment compliance and slightly elevated residual AHI. On CPAP therapy, the patient has better sleep quality and is more rested overall. I had adjusted his pressure lower for comfort. His residual AHI was also elevated at 11.8. New pressure range of [id number] has reduced residual AHI to 5.8. However, he is still waking with feeling it is too high and has noted it is if the pressure range is above [id number]. So I will reduce CPAP range for comfort to [id number]. The ramp will also be reduced to 6cmH20 and instructed to adjust as needed for comfort. It had been adjusted previously for complaint of air hunger at lower pressures. Nasal congestion and oral dryness can be reduced with increasing the CPAP humidity . The heated hose can be adjusted higher if condensation with higher humidity setting. Saline nasal spray sample was also given to use prior to CPAP to clear nasal secretions and wash off any nasal allergens to facilitate nasal breathing. In addition, a steamy shower before bed will often assist nasal drainage.Patient's apnea severity and rationale for treatment to reduce apnea, improve sleep quality and reduce hypertension, cardiovascular and cerebrovascular events was reviewed. * Changeauto CPAP pressure to 7-10 cmH2O * Adjust ramp to comfort - try 6cmH20 * Implement methods to reduce oral dryness and nasal congestion. * Notify me if snoring with mask or feeling that the pressure is too much or too little * Attempt to lose weight * Call this office if any problems using CPAP * Return for follow up in 1-2 months , or sooner if concerns arise Visit Type: Telehealth Phone (to minimize risk of Covid 19 exposure) Patient Location: Home Other Participants: Spouse/Significant Other Location of Provider: Home Patient agrees and consents to this telehealth visit type: Yes Patient agrees to have their insurance billed: Yes Time Spent with Patient (minutes): 10 Provider Statement: I spent 100% of the Telehealth Phone Call with the patient with greater than 50% spent counseling the patient and coordination of care.
== END 2019-11-30 15:52 | disposition home or self-care (01) ==
LOC: SC 15:51
PROVIDERS: ATTEND Nurse Practitioner Family
DX: G47.33 Obstructive sleep apnea (adult) (pediatric) (principal)

== ENCOUNTER 2020-02-01 15:15 | Outpatient (CLI) | payer MEDICARE, BC, OTHER ==
[2020-02-01 16:08] VITALS: BP 110/70
--- NOTE | 2020-02-01 16:08 | SLEEP CARE CONSULTATION ---
Information from patient questionnaire entered by Susy Reyes. I have reviewed and concur with the information entered by Susy Reyes. This document represents the service I personally performed and the decisions made by me, Shital Helm, RN, MSN, TOLL PATROLMAN. History of Present Illness Service Date and Time: 02/01/2020 1515 Previous diagnosis: Very Severe, Obstructive Sleep Apnea-Hypopnea Syndrome AHI: 65.3 Reason for follow up: other (2 month with pressure change) Equipment type: CPAP Equipment obtained from: [facility] (getting supplies as needed) Mask style: Full face Backup mask available: Yes (from sleep study ) Last cushion change: 3 weeks ago [facility] of [facility]: Polysomnography HPI additional information: Pressure change more comfortable. The higher humidity at 3 did not assist his dryness. But he is taking Benadryl, sudafed and allergy shots. CPAP Compliance Data - Data Reviewed with Patient Average duration of nightly device use: 5H 2M Compliance rate %: 76.7 Current pressure setting (cmH2O): 7-10 Humidity settin Heated hose settin Average residual AHI: 2.8 Average large leak: 2S Subjective Patient concerns: reports: mask leak noise (occasionally ), nasal congestion (despite allergy medications, he is still struggling with nasal congestion and affects CPAP use. ), dry mouth, nose, throat (dry mouth most days ). denies: aerophagia, mask discomfort, air blowing in eyes, condensation in mask/hose, epistaxis Observed to snore while using device: No Current pressure setting perceived as: comfortable On therapy, patient: reports: sleeping better, awakening more refreshed, being more awake and alert during the day, more rested overall. denies: drowsiness while driving Initial [place] Sleepiness Scale score: 5 Current [place] Sleepiness Scale score: 3 Allergies and Home Medications Known drug allergies: Yes (see list) Home medication list reviewed: No (no changes stated) Review of Systems Review of systems same as previous: Yes Physical Exam Blood Pressure: 110/70 Cuff size: regular Heart Rate: 83 O2 Saturation: 95 Height: 5 ft 9 in Weight: 216 lb Body Mass Index: 31.8 BMI Classification: Obese Impression and Plan 1. Obstructive Sleep Apnea-Hypopnea Syndrome, very severe, with good treatment compliance and good apnea control. On CPAP therapy, the patient has better sleep quality and is more rested overall. Oral dryness can be reduced by adjusting humidity setting higher and heated hose lower and I reviewed again rationale why to change. Patient advised that chronic oral dryness can affect dental health and advised to follow up with dentist. In addition, there are oral dryness products that can be used to reduce dryness such as Biotene products, Dry mouth rinse and Xylomelts. Patient to discuss best option with dentist. Patient has gained weight. Currently patients BMI is 32.0 obesity class . Obesity increases the risk of apnea, CPAP pressure requirements and overall health risks especially cardiovascular and diabetes. Thus patient is advised to lose weight. Weight loss can be done with reducing portion size, reducing refined foods and balancing content with vegetables, fruit and protein. In addition tracking food intake will allow awareness of how to modify diet to achieve weight loss goals. Also eating more slowly will allow more awareness of food intake and enjoyment of food while assisting patient to modify intake at each meal. A diet consultation can be helpful in achieving optimal weight loss goals. The BMI chart was reviewed.. Patient encouraged to discuss their weight loss goals with their PCP and consider a referral to a u.[employer]. revenue officer. The patient's CPAP pressure range should accommodate some weight loss. Symptoms to report for additional pressure adjustment discussed. Patient's apnea severity and rationale for treatment to reduce apnea, improve sleep quality and reduce cardiovascular and cerebrovascular events was reviewed. He is advised to use CPAP with all sleep including his naps. To improve use of CPAP when patient needs to sleep on couch or nap, I advised placing an electric outlet strip at bedside and by couch to ease transfer of PAP from bedside to couch. * Continue auto CPAP pressure at 7-10 cmH2O * Notify me if snoring with mask or feeling that the pressure is too much or too little * Attempt to lose weight * Implement methods to reduce oral dryness * Use CPAP with naps. * Call this office if any problems using CPAP * Return for follow up in 6 months , or sooner if concerns arise Visit Type: In Office Time Spent with Patient (minutes): 26 Provider Statement: I spent 100% of the Face to Face Visit with the patient with greater than 50% spent counseling the patient and coordination of care.
== END 2020-02-01 15:16 | disposition home or self-care (01) ==
LOC: SC 15:15
PROVIDERS: ATTEND Nurse Practitioner Family
DX: G47.33 Obstructive sleep apnea (adult) (pediatric) (principal); E66.9 Obesity, unspecified; Z68.31 Body mass index [BMI] 31.0-31.9, adult
CPT/HCPCS: 99214; G0463; 99212

== ENCOUNTER 2020-02-09 08:00 | Outpatient (CLI) | payer MEDICARE, BC, OTHER | END 2020-02-09 23:59 | disposition home or self-care (01) | LOC: LAB.WCP 08:00 | PROVIDERS: ATTEND Family Medicine | DX: E03.9 Hypothyroidism, unspecified (principal) | CPT/HCPCS: 36415; 84443 ==

== ENCOUNTER 2020-08-11 15:00 | Outpatient (CLI) | payer MEDICARE, BC, OTHER ==
--- NOTE | 2020-08-11 14:28 | SLEEP CARE CONSULTATION ---
Information from patient questionnaire entered by Arlene Vegas. I have reviewed and concur with the information entered by Arlene Vegas. This document represents the service I personally performed and the decisions made by me, Shital Helm, RN, MSN, LABORATORY VETERINARIAN. History of Present Illness Service Date and Time: 08/11/2020 1500 Previous diagnosis: Very Severe, Obstructive Sleep Apnea-Hypopnea Syndrome AHI: 65.3 (in 2019) Reason for follow up: six month Accompanied by: Spouse Equipment type: CPAP Equipment obtained from: [facility] (getting supplies as needed) Mask style: Full face Last cushion change: 1 month Prior sleep studies: Yes Year and Where: 2019 - [facility] HPI additional information: Reviewed past 3 visits prior to this visit as his complaince has fallen and reviewed what past CPAP history of use was. Last visit on 01/31 compliance 100% with 5 hours of average CPAP use onf [id number]. Prior visit on 11/30/19 compliance was 98.3% with pressure set at 8-15 cmH20 and adjusted for comfort Has had oral dryness that was reduced with adjustment of humidity. No significant mask leaks. Medications reviewed. CPAP Compliance Data - Data Reviewed with Patient Average duration of nightly device use: 4 hr 23 min Compliance rate %: 58.9 (180 days) Current pressure setting (cmH2O): 7-10 Humidity settin Heated hose settin Average residual AHI: 4.2 Average large leak: 3 sec Subjective Patient concerns: reports: mask discomfort (mask uncomfortable at bridge of nose- new mask no better - no redness. ), mask leak noise, nasal congestion (chronic nasal congestion - uses nasal steroid daily.), dry mouth, nose, throat (dry), other (nose plugsabout 15 minutes after use - on allergy meds and sees animal physiology teacher / ENT). denies: aerophagia, air blowing in eyes (occasionally a couple times a week ), condensation in mask/hose, epistaxis Observed to snore while using device: No Current pressure setting perceived as: too high (initially - but lots of noise from mask bothers spouse) On therapy, patient: reports: being more awake and alert during the day, more rested overall (slightly when enough sleep ). denies: sleeping better (insomnia due to mask feeling claustropbic -tried nasal mask but leaked / falls asleep when trying to relax ), awakening more refreshed (observed by spouse especially when uses longer time), drowsiness while driving Initial [place] Sleepiness Scale score: 6 (in 2014) Allergies and Home Medications Known drug allergies: Yes (sulfa ) Home medication list reviewed: Yes (no changes ) Physical Exam Height: 5 ft 9 in Weight: 206 lb Body Mass Index: 30.4 BMI Classification: Obese Impression and Plan 1. Obstructive Sleep Apnea-Hypopnea Syndrome, very severe , with fair treatment compliance and good apnea control. On CPAP therapy, the patient has is slightly more rested overall. He has been struggling to use CPAP due to mask. He states it is causing him difficulty to sleep. Without CPAP he sleeps fine. He has tried a new style of mask but it was worse and now has to wait about 6 months to obtain new mask. I encouraged them to follow up with [facility] as discussed to see if can be shown how to use mask better until new mask obtained. They can also buy a new mask out of pocket but can be expensive. When obtains a new mask, it was stressed to contact [facility] immediately if is not working as generally can be exchanged if less than 30 days. In addition, the patients pressure will be changed to autoCPAP [id number] For comfort of air. Patient advised to contact me if pressure change is uncomfortable so that it can be adjusted. Goals for apnea control discussed. He also struggles with nasal congestion which impacts CPAP use. Nasal congestion and his oral dryness can be reduced with increasing the CPAP humidity to maximum and adjusting lower for comfort. The heated hose can be adjusted higher if condensation with higher humidity setting. Saline nasal spray also advised to be used prior to CPAP to clear nasal secretions and wash off any nasal allergens to facilitate nasal breathing. Saline nasal spray can be used prior to his nasal steroid spray to improve medication adherence with rationale discussed. In addition, a steamy shower before bed will often assist nasal drainage instead of showering in morning. Spouse is aware how to change humidity and heated hose settings. At end of visit patient asked about Inspire treatment he has read about and questions answered. I explained how it works and that it is used for patients that are unable to tolerate CPAP. I advised him to try the above measures to see if he can use CPAP better then follow up with Dr. Meeks to discuss. Patient and spouse agreed with plan. Patient's apnea severity and rationale for treatment to reduce apnea, improve sleep quality and reduce cardiovascular and cerebrovascular events and sleep study was reviewed. I also reviewed the benefit of consistent device use of CPAP for hypertension. I also emphasized the importance of using CPAP with all sleep to obtain maximum benefit of treatment. To assist to relax before CPAP use he was advised to try deep breathing exercises found on [email or web address]. * * Changeauto CPAP pressure to 6-10 cmH2O * Notify me if snoring with mask or feeling that the pressure is too much or too little * Implement methods to reduce nasal congestion,oral dryness. * Contact [facility] for mask refitting * Attempt to lose weight * Call this office if any problems using CPAP * Return for follow up with Dr Meeks in 1-2 months, or sooner if concerns arise Follow up recommended for: Other (doximity) Visit Type: Telehealth Phone Patient [facility]: [facility] Other Participants: Spouse/Significant Other Location of Provider: Home Patient agrees and consents to this telehealth visit type: Yes Patient agrees to have their insurance billed: Yes Time Spent with Patient (minutes): 37 minutes with patient / spouse - many questions / documentation 10 minute Provider Statement: I spent 100% of the Telehealth Phone Call with the patient with greater than 50% spent counseling the patient and coordination of care.
== END 2020-08-11 23:59 | disposition home or self-care (01) ==
LOC: SC 15:00
PROVIDERS: ATTEND Nurse Practitioner Family
DX: G47.33 Obstructive sleep apnea (adult) (pediatric) (principal); E66.9 Obesity, unspecified; Z68.30 Body mass index [BMI] 30.0-30.9, adult

== ENCOUNTER 2021-08-03 14:00 | Outpatient (CLI) | payer MEDICARE, BC, OTHER ==
--- NOTE | 2021-08-03 14:20 | SLEEP CARE CONSULTATION ---
Information from patient questionnaire entered by Rae Gibson MA. I have reviewed and concur with the information entered by Rae Gibson MA. This document represents the service I personally performed and the decisions made by , Dulce Fish ARNP. History of Present Illness Service Date and Time: 08/03/2021 1400 Previous diagnosis: Very Severe, Obstructive Sleep Apnea-Hypopnea Syndrome AHI: 65.3 (in 2019) Reason for follow up: annual (LAST SEEN 07/2020) Equipment type: CPAP Equipment obtained from: Other ([facility]; getting supplies as needed) Mask style: Full face (AirTouch F20) Mask brand: Resmed Backup mask available: No (will keep old mask when replaced) Last cushion change: today Prior [facility]: Yes [facility] H[facility] additional information: LUDY PATTERSON was diagnosed to have very severe, AHI 65.3, obstructive sleep apnea-hypopnea syndrome and returns via video Telehealth visit today with spouse for CPAP therapy annual follow-up. Sleep Study - Results Prior sleep studies: Yes [facility] Compliance Data - Data Reviewed with Patient Average duration of nightly device use: 5 hours 44 minutes Compliance rate %: 90.6 Current pressure setting (cmH2O): 7-9 Average residual AHI: 3.1 Average large leak: 1 minute 45 seconds Subjective Patient concerns: reports: mask discomfort (until it settles in and he falls asleep), dry mouth, nose, throat (occasionally). denies: aerophagia, air blowing in eyes, mask leak noise, condensation in mask/hose, nasal congestion, epistaxis, other Observed to snore while using device: No Current pressure setting perceived as: comfortable On therapy, patient: reports: sleeping better, awakening more refreshed, being more awake and alert during the day, more rested overall. denies: drowsiness while driving Initial [place] Sleepiness Scale score: 6 (in 2013) Current [place] Sleepiness Scale score: 6 Allergies and Home Medications Home medication list reviewed: Yes Allergy and home medication list: Synthroid to 88 mcg Dutasterid-tamsulosin B12 1000 mg Aspirin 81 mg CoQ 10 Acyclovir D3 2000 mg Omeprazole 40 mg Latanoprost drops Prednisone, prn gout Hydralizine, prn Ipatroprium bromide, prn Review of Systems Review of systems same as previous: Yes (no changes) Physical Exam Vital signs obtained and entered by: Telehealth visit to reduce exposure during Covid pandemic Height: 5 ft 9 in Impression and Plan 1. Obstructive Sleep Apnea-Hypopnea Syndrome, very severe, with good treatment compliance and good apnea control. On CPAP therapy, the patient has better sleep quality and is more rested overall. Patient and his learned of the recall and has already registered their device for the recall. Patient denies any black particles seen in machine or hoses, any unusual odors coming from device. Patient has not experienced any physical symptoms such as upper airway irritation, headache, skin or eye irritation, asthma, nausea/vomiting, difficulty breathing or chest pain. If patient is not able to sleep due to waking up choking, gasping for air or other respiratory distress that they may decide to continue using it until it is either replaced or repaired. Patient plans on continuing to use his CPAP unless he sees any debris in machine or has symptoms develop. Patient voiced understanding and agreement with plan. Patient's apnea severity and rationale for treatment to reduce apnea, improve sleep quality and reduce cardiovascular and cerebrovascular events was reviewed. I also reviewed the benefit of consistent device use of CPAP for hypertension. Patient was encouraged to lose weight for their overall health and to reduce apneas. * Continue auto CPAP pressure at 7-9 cmH2O * Notify me if snoring with mask or feeling that the pressure is too much or too little * Attempt to lose weight * Call this office if any problems using CPAP * Return for follow up in 1 year, or sooner if concerns arise Counseling Topics: Spare mask, Weight loss health impact Visit Type: Telehealth Video Video Type: VSee Patient Location: Home Other Participants: Spouse/Significant Other Location of Provider: Office Patient agrees and consents to this telehealth visit type: Yes Patient agrees to have their insurance billed: Yes Time Spent with Patient (minutes): 20 Provider Statement: I spent 100% of the Telehealth Video Call with the patient with greater than 50% spent counseling the patient and coordination of care.
== END 2021-08-03 14:01 | disposition home or self-care (01) ==
LOC: SC 14:00
PROVIDERS: ATTEND Nurse Practitioner Family
DX: G47.33 Obstructive sleep apnea (adult) (pediatric) (principal)

== ENCOUNTER 2023-04-11 15:59 | Emergency (ER) | payer MEDICARE, BC, OTHER ==
--- NOTE | 2023-04-11 16:17 | ED Physician Documentation ---
PD HPI CHEST PAIN - Stated complaint Stated Complaint: PX WHEN BREATHING - Chief complaint Chief Complaint: Resp - History obtained from History obtained from: Patient, Family - Additional information Additional information: 87-year-old gentleman with history of a flutter, CKD, Parkinson's and stroke. He is on Eliquis. He presents with his for sharp anterior chest pain that is only present when he takes a deep breath. When he is breathing shallowly he does not feel it. It started at noon today. He is not short of breath with it. Denies pedal edema or calf pain. No radiation of the pain. PD PAST MEDICAL HISTORY - Past Medical History Cardiovascular: None Respiratory: None Endocrine/Autoimmune: None Psych: Depression, Anxiety Musculoskeletal: Osteoarthritis, Gout, Fatigue, Chronic back pain - Past Surgical History Past Surgical History: Yes General: Appendectomy, Colonoscopy Ortho: Hip replacement HEENT: Cataracts, Tonsil/Adenoidectomy - Present Medications Home Medications: Ambulatory Orders Medication Instructions Recorded Confirmed Acyclovir 1 tab PO BID 05/19/17 04/11/23 Cyanocobalamin [Vitamin B-12] 1,000 mcg IM .MWFR 05/19/17 04/11/23 Hydralazine HCl 10 mg PO DAILY PRN 05/19/17 04/11/23 Ubidecarenone/Vitamin E Mixed 1 cap PO QPM 05/19/17 04/11/23 [[id number] E 200 mg-20 Unit Sfg] Apixaban [Eliquis] 2.5 mg PO BID 04/11/23 04/11/23 Gabapentin [Neurontin] 100 mg PO BID 04/11/23 04/11/23 Latanoprost 0.005% Ophth Drops 1 drops OP HS 04/11/23 04/11/23 [Xalatan Ophth Drops] Levothyroxine [Synthroid] 100 mcg PO QDAC 04/11/23 04/11/23 Midodrine HCl 5 mg PO BID PRN 04/11/23 04/11/23 Pantoprazole [Protonix] 40 mg PO DAILY 04/11/23 04/11/23 Vibegron [Gemtesa] 75 mg PO DAILY 04/11/23 04/11/23 predniSONE [Deltasone] 20 mg PO DAILY PRN 04/11/23 04/11/23 - Allergies Allergies/Adverse Reactions: Allergies Allergy/AdvReac Type Severity Reaction Status Date / Time Sulfa (Sulfonamide Allergy Intermediate Hives Verified 04/11/23 16:03 Antibiotics) - Social History Does the pt smoke?: No Smoking Status: Never smoker Does the pt drink ETOH?: Yes Does the pt have substance abuse?: No - Immunizations Immunizations are current?: Yes PD ED PE NORMAL - Vitals Vital signs reviewed: Yes - General General: Alert and oriented X 3, No acute distress - HEENT HEENT: PERRL, EOMI - Neck Neck: Supple, no meningeal sign, No bony TTP - Cardiac Cardiac: RRR, No murmur - Respiratory Respiratory: No respiratory distress, Clear bilaterally - Abdomen Abdomen: Non tender - Extremities Extremities: No edema, No calf tenderness / cord - Neuro Neuro: Alert and oriented X 3, Normal speech Results - Vitals Vitals: Vital Signs - 24 hr 04/11/23 16:03 Temperature 37.1 C Heart Rate 77 Respiratory 18 Rate Blood Pressure 150/86 H O2 Saturation 98 Oxygen O2 Source Room air - EKG (time done) 1607 EKG releavant findings:: EKG personally interpreted by author of this note. Relevant findings are: Rate: Rate (enter#) (69) Rhythm: Atrial flutter Intervals: RBBB Ischemia: Q waves (inferior). No: ST elevation c/w ischemia Computer interpretation: Agree with computer - Labs Labs: Laboratory Tests 04/11/23 04/11/23 16:22 16:22 WBC 9.8 RBC 5.01 Hgb 15.6 Hct 46.9 MCV 93.6 MCH 31.1 H MCHC 33.3 RDW 13.0 Plt Count 212 MPV 9.7 Neut # (Auto) 7.4 H Lymph # (Auto) 1.2 L [place] # (Auto) 1.0 Eos # (Auto) 0.1 Baso # (Auto) 0.1 Absolute Nucleated RBC 0.00 Nucleated RBC % 0.0 Sodium 136 Potassium 4.3 Chloride 99 L Carbon Dioxide 33 H Anion Gap 4.0 L BUN 23 H Creatinine 1.7 H Estimated GFR (MDRD) 38 L Glucose 102 Calcium 9.5 Total Bilirubin 0.9 AST 13 ALT 13 Alkaline Phosphatase 74 Troponin I High Sens 6.8 Total Protein 6.2 L Albumin 3.9 Globulin 2.3 Albumin/Globulin Ratio 1.7 Lipase 20 - Rads (name of study) Single view chest x-ray is unremarkable Relevant Findings:: Final report received, EMP independent interpretation of test PD Medical Decision Making - ED course ED course: 87-year-old gentleman with very atypical chest pain, only present when he takes a deep breath. He is anticoagulated and not short of breath with normal vital signs I doubt PE. He has a normal troponin here, nonischemic EKG. Otherwise labs showing CBC normal, chemistry panel showing chronic renal insufficiency. Departure - Departure Disposition: Home, Self Care Clinical Impression: Chest pain Qualifiers: Chest pain type: unspecified Qualified Code(s): R07.9 - Chest pain, unspecified Condition: Good Record reviewed to determine appropriate education?: Yes Instructions: ED Chest Pain NonCardiac Comments: No sign of serious cause of chest pain such as heart problem, pneumonia etc. Return for new or worsening symptoms. Follow-up with your primary care physician, next available appointment. Forms: PCP List
[2023-04-11 16:26] LABS: BASOPHILS # (AUTO) 0.1 10^3/uL (0.0-0.1); BASOPHILS % (AUTO) 0.7 %; EOSINOPHILS # (AUTO) 0.1 10^3/uL (0.0-0.7); EOSINOPHILS % (AUTO) 1.3 %; HCT - HEMATOCRIT 46.9 % (42.0-52.0); HGB - HEMOGLOBIN 15.6 g/dL (14.0-18.0); LYMPHOCYTES # (AUTO) 1.2 10^3/uL (1.5-3.5); LYMPHOCYTES % (AUTO) 12.5 %; MEAN CORPUSCULAR HEMOGLOBIN 31.1 pg (27.0-31.0); MEAN CORPUSCULAR HGB CONC 33.3 g/dL (32.0-36.0); MEAN CORPUSCULAR VOLUME 93.6 fL (80.0-94.0); MEAN PLATELET VOLUME 9.7 fL (7.4-11.4); NEUTROPHILS # (AUTO) 7.4 10^3/uL (1.5-6.6); NEUTROPHILS % (AUTO) 75.3 %; PLT - PLATELET COUNT 212 10^3/uL (130-450); RED BLOOD COUNT 5.01 10^6/uL (4.70-6.10); WHITE BLOOD COUNT 9.8 x10^3/uL (4.8-10.8)
[2023-04-11 16:42] LABS: ALBUMIN 3.9 g/dL (3.2-5.5); ALBUMIN/GLOBULIN RATIO 1.7 (1.0-2.2); BILIRUBIN,TOTAL 0.9 mg/dL (0.2-1.0); CALCIUM 9.5 mg/dL (8.5-10.3); CREATININE 1.7 mg/dL (0.6-1.3); POTASSIUM 4.3 mmol/L (3.5-4.5); TOTAL PROTEIN 6.2 g/dL (6.4-8.9)
--- NOTE | 2023-04-11 16:43 | XRAY Report ---
PROCEDURE: Chest 1 View X-Ray INDICATIONS: Chest Pain TECHNIQUE: One view of the chest was acquired. COMPARISON: Chest x-ray 05/19/2017 FINDINGS: Surgical changes and devices: None. Lungs and pleura: No pleural effusions or pneumothorax. Lungs are clear. Mediastinum: Mediastinal contours appear normal. Heart size is enlarged. Bones and chest wall: No suspicious bony lesions. Overlying soft tissues appear unremarkable. IMPRESSION: No acute cardiopulmonary process. Reviewed by: Katty Bahena MD on 04/11/2023 4:42 PM PDT Approved by: Katty Bahena MD on 04/11/2023 4:42 PM PDT Station ID: [id number]
[2023-04-11 16:46] LABS: TROPONIN I HIGH SENSITIVITY 6.8 ng/L (2.3-19.7)
[2023-04-11 18:15] VITALS: BP 133/78; O2SAT 95
== END 2023-04-11 18:05 | disposition home or self-care (01) ==
LOC: ED 15:59
DX: R07.9 Chest pain, unspecified (principal); Z79.01 Long term (current) use of anticoagulants
CPT/HCPCS: 36415; 80053; 83690; 84484; 85025; 93005; 99284

== ENCOUNTER 2023-04-11 21:59 | Outpatient (CLI) | payer MEDICARE, BC, OTHER | END 2023-04-11 23:59 | disposition critical access hospital (66) | LOC: EMS 21:59 | DX: M54.6 Pain in thoracic spine (principal); R06.89 Other abnormalities of breathing | CPT/HCPCS: A0425; A0429 ==

== ENCOUNTER 2023-04-11 22:17 | Emergency (ER) | payer MEDICARE, BC, OTHER ==
[2023-04-11] MEDS ORDERED: HYDROcod/ACETAM 5/325 MG TABLET PO STA (22:30)
[2023-04-11 22:41] LABS: BASOPHILS % (AUTO) 0.3 %; EOSINOPHILS # (AUTO) 0.1 10^3/uL (0.0-0.7); EOSINOPHILS % (AUTO) 0.5 %; HCT - HEMATOCRIT 44.8 % (42.0-52.0); LYMPHOCYTES # (AUTO) 1.1 10^3/uL (1.5-3.5); LYMPHOCYTES % (AUTO) 9.5 %; MEAN CORPUSCULAR HEMOGLOBIN 31.5 pg (27.0-31.0); MEAN CORPUSCULAR HGB CONC 33.5 g/dL (32.0-36.0); MEAN CORPUSCULAR VOLUME 94.1 fL (80.0-94.0); MEAN PLATELET VOLUME 9.8 fL (7.4-11.4); MONOCYTES # (AUTO) 1.2 10^3/uL (0.0-1.0); MONOCYTES % (AUTO) 10.3 %; NEUTROPHILS # (AUTO) 9.5 10^3/uL (1.5-6.6); NEUTROPHILS % (AUTO) 79.2 %; PLT - PLATELET COUNT 196 10^3/uL (130-450); RED BLOOD COUNT 4.76 10^6/uL (4.70-6.10); RED CELL DISTRIBUTION WIDTH 12.9 % (12.0-15.0)
[2023-04-11 22:56] LABS: ALBUMIN 3.4 g/dL (3.2-5.5); ALBUMIN/GLOBULIN RATIO 1.1 (1.0-2.2); BILIRUBIN,TOTAL 1.2 mg/dL (0.2-1.0); CALCIUM 8.8 mg/dL (8.5-10.3); CREATININE 1.8 mg/dL (0.6-1.2); POTASSIUM 4.1 mmol/L (3.5-5.0); TOTAL PROTEIN 6.4 g/dL (6.7-8.2)
[2023-04-11 23:03] LABS: TROPONIN I HIGH SENSITIVITY 7.5 ng/L (2.3-19.7)
--- NOTE | 2023-04-12 00:04 | ED Physician Documentation ---
PD HPI CHEST PAIN - Stated complaint Stated Complaint: CHEST PX/SOA - Chief complaint Chief Complaint: Cardiac - History obtained from History obtained from: Patient, Family () - Additional information Additional information: 87yM with pmh edin, just seen earlier today in our ED by my colleague, p/w persistent chest pain radiating to the back. denies nausea, diaphoresis. he did feel feverish today and states he had 101 temp by temporal thermometer before receiving 1000mg tylenol around 6:30pm. denies increased cough but does state he gets a chronic nonproductive cough, sore throat and rhinorrhea in the mornings that he attributes to seasonal allergies. PD PAST MEDICAL HISTORY - Past Medical History Cardiovascular: None Respiratory: None Endocrine/Autoimmune: None Psych: Depression, Anxiety Musculoskeletal: Osteoarthritis, Gout, Fatigue, Chronic back pain - Past Surgical History Past Surgical History: Yes General: Appendectomy, Colonoscopy Ortho: Hip replacement HEENT: Cataracts, Tonsil/Adenoidectomy - Present Medications Home Medications: Ambulatory Orders Medication Instructions Recorded Confirmed Acyclovir 1 tab PO BID 05/19/17 04/11/23 Cyanocobalamin [Vitamin B-12] 1,000 mcg IM .MWFR 05/19/17 04/11/23 Hydralazine HCl 10 mg PO DAILY PRN 05/19/17 04/11/23 Ubidecarenone/Vitamin E Mixed 1 cap PO QPM 05/19/17 04/11/23 [[id number] E 200 mg-20 Unit Sfg] Apixaban [Eliquis] 2.5 mg PO BID 04/11/23 04/11/23 Gabapentin [Neurontin] 100 mg PO BID 04/11/23 04/11/23 HYDROcod/ACETAM 5/325 [[place] 5/325] 1 - 2 tab PO Q6H PRN #10 tablet 04/11/23 Latanoprost 0.005% Ophth Drops 1 drops OP HS 04/11/23 04/11/23 [Xalatan Ophth Drops] Levothyroxine [Synthroid] 100 mcg PO QDAC 04/11/23 04/11/23 Midodrine HCl 5 mg PO BID PRN 04/11/23 04/11/23 Pantoprazole [Protonix] 40 mg PO DAILY 04/11/23 04/11/23 Vibegron [Gemtesa] 75 mg PO DAILY 04/11/23 04/11/23 predniSONE [Deltasone] 20 mg PO DAILY PRN 04/11/23 04/11/23 Amox/Clav 875/125 [Augmentin 1 tablet PO Q12H 7 Days #14 tablet 04/12/23 875/125 Tab] - Allergies Allergies/Adverse Reactions: Allergies Allergy/AdvReac Type Severity Reaction Status Date / Time Sulfa (Sulfonamide Allergy Intermediate Hives Verified 04/11/23 22:23 Antibiotics) - Social History Does the pt smoke?: No Smoking Status: Never smoker Does the pt drink ETOH?: Yes Does the pt have substance abuse?: No - Immunizations Immunizations are current?: Yes PD ED PE NORMAL - Vitals Vital signs reviewed: Yes - General General: Alert and oriented X 3, No acute distress, Well developed/nourished, Other (elderly appearing) - HEENT HEENT: Atraumatic, PERRL, EOMI, Moist mucous membranes - Neck Neck: Supple, no meningeal sign - Cardiac Cardiac: RRR - Respiratory Respiratory: No respiratory distress, Other (coarse BL breath sounds) - Abdomen Abdomen: Non tender, Non distended - Derm Derm: Normal color, Warm and dry - Extremities Extremities: No deformity - Neuro Neuro: Alert and oriented X 3, No motor deficit, No sensory deficit - Psych Psych: Normal mood, Normal affect Results - Vitals Vitals: Vital Signs - 24 hr 04/11/23 04/12/23 22:23 00:18 Temperature 36.5 C 38.2 C H Heart Rate 88 Respiratory 16 Rate Blood Pressure 130/72 O2 Saturation 95 Oxygen O2 Source Room air - EKG (time done) 2229 EKG releavant findings:: EKG personally interpreted by author of this note. Relevant findings are: Rate: Rate (enter#) (81) Rhythm: Atrial flutter Intervals: RBBB Compare to prior EKG: Unchanged from prior EKG - Labs Labs: Laboratory Tests 04/11/23 04/11/23 04/11/23 22:36 22:36 22:36 WBC 12.0 H RBC 4.76 Hgb 15.0 Hct 44.8 MCV 94.1 H MCH 31.5 H MCHC 33.5 RDW 12.9 Plt Count 196 MPV 9.8 Neut # (Auto) 9.5 H Lymph # (Auto) 1.1 L [place] # (Auto) 1.2 H Eos # (Auto) 0.1 Baso # (Auto) 0.0 Absolute Nucleated RBC 0.00 Nucleated RBC % 0.0 D-Dimer 207.9 Sodium 137 Potassium 4.1 Chloride 101 Carbon Dioxide 29 Anion Gap 7.0 BUN 26 H Creatinine 1.8 H Estimated GFR (MDRD) 36 L Glucose 113 H Lactic Acid Calcium 8.8 Total Bilirubin 1.2 H AST 15 ALT 15 Alkaline Phosphatase 64 Troponin I High Sens 7.5 Total Protein 6.4 L Albumin 3.4 Globulin 3.0 Albumin/Globulin Ratio 1.1 Lipase 27 Nasal Adenovirus (PCR) Nasal B. parapertussis DNA (PCR) Nasal Coronavir 229E PCR Nasal Coronavir HKU1 PCR Nasal Coronavir NL63 PCR Nasal Coronavir OC43 PCR Nasal Enterovir/Rhinovir PCR Nasal Influenza B PCR Nasal Influenza A PCR Nasal Parainfluen 1 PCR Nasal Parainfluen 2 PCR Nasal Parainfluen 3 PCR Nasal Parainfluen 4 PCR Nasal RSV (PCR) Nasal B.pertussis DNA PCR Nasal C.pneumoniae (PCR) Alf Human Metapneumo PCR Nasal M.pneumoniae (PCR) Nasal SARS-CoV-2 (PCR) 04/12/23 04/12/23 00:28 00:55 WBC RBC Hgb Hct MCV MCH MCHC RDW Plt Count MPV Neut # (Auto) Lymph # (Auto) [place] # (Auto) Eos # (Auto) Baso # (Auto) Absolute Nucleated RBC Nucleated RBC % D-Dimer Sodium Potassium Chloride Carbon Dioxide Anion Gap BUN Creatinine Estimated GFR (MDRD) Glucose Lactic Acid 1.5 Calcium Total Bilirubin AST ALT Alkaline Phosphatase Troponin I High Sens Total Protein Albumin Globulin Albumin/Globulin Ratio Lipase Nasal Adenovirus (PCR) NOT DETECTED Nasal B. parapertussis DNA (PCR) NOT DETECTED Nasal Coronavir 229E PCR NOT DETECTED Nasal Coronavir HKU1 PCR NOT DETECTED Nasal Coronavir NL63 PCR NOT DETECTED Nasal Coronavir OC43 PCR NOT DETECTED Nasal Enterovir/Rhinovir PCR NOT DETECTED Nasal Influenza B PCR NOT DETECTED Nasal Influenza A PCR NOT DETECTED Nasal Parainfluen 1 PCR NOT DETECTED Nasal Parainfluen 2 PCR NOT DETECTED Nasal Parainfluen 3 PCR NOT DETECTED Nasal Parainfluen 4 PCR NOT DETECTED Nasal RSV (PCR) NOT DETECTED Nasal B.pertussis DNA PCR NOT DETECTED Nasal C.pneumoniae (PCR) NOT DETECTED Alf Human Metapneumo PCR NOT DETECTED Nasal M.pneumoniae (PCR) NOT DETECTED Nasal SARS-CoV-2 (PCR) NOT DETECTED PD Medical Decision Making - ED course ED course: 87yM presents to the ED as a second visit today with left sided chest pain moving to the back. workup earlier was unremarkable including ekg, trop, cxr, cbc, abdominal panel. repeat ekg shows rate controlled a flutter without acute changes from previous. labwork unchanged with exception of increasing wbc count of 12 (9.8 earlier today). d-dimer negative, effectively ruling out PE or aortic dissection. Patient is afebrile by rectal temp 6 hours after antipyretic administration. Reviewed cxr and the radiologist interpreted it as no signs of pneumonia, however given the new leukocytosis and fever, decision was made to provide antibiotics for CAP. Lactic acid <2. blood cultures were drawn and rvp sent (negative for viruses). return precautions given to patient and . they will call to f/u with pcp tomorrow. Departure - Departure Disposition: 01 Home, Self Care Clinical Impression: Atypical chest pain, Back pain, Fever, Pneumonia Condition: Stable Instructions: Pneumonia Dc Prescriptions: Amox/Clav 875/125 [Augmentin 875/125 Tab] 1 tablet PO Q12H 7 Days #14 tablet Comments: You were seen in the emergency department for chest pain moving to the back. You had a fever here in the ED and I believe this is caused by bacterial pneumonia. A nose swab for viruses was done and didn't show a viral cause. Blood cultures were also done and we will call you if there are signs of bacteria in the blood. Electronic prescription for antibiotics sent to [facility]. Please follow-up with your primary care provider and return to the emergency department if you have any new or worsening symptoms or other concerns. Forms: PCP List
[2023-04-12 01:52] LABS: B. PARAPERTUSSIS- RESP PCR PAN NOT DETECTED; B. PERTUSSIS- RESP PCR PANEL NOT DETECTED; C. PNEUMONIAE- RESP PCR PANEL NOT DETECTED; CORONAVIRUS 229E-RESP PCR NOT DETECTED; CORONAVIRUS HKU1-RESP PCR NOT DETECTED; CORONAVIRUS NL63-RESP PCR NOT DETECTED; CORONAVIRUS OC43-RESP PCR NOT DETECTED; HUMAN METAPNEUMOVIRUS NOT DETECTED; INFLUENZA A- RESP PCR PANEL NOT DETECTED; INFLUENZA B - RESP PCR PANEL NOT DETECTED; M. PNEUMONIAE- RESP PCR PANEL NOT DETECTED; PARAINFLUENZA VIRUS 1 NOT DETECTED; PARAINFLUENZA VIRUS 2 NOT DETECTED; PARAINFLUENZA VIRUS 3 NOT DETECTED; PARAINFLUENZA VIRUS 4 NOT DETECTED; RHINOVIRUS/ENTEROVIRUS NOT DETECTED; RSV- RESP PCR PANEL NOT DETECTED; SARS-CoV-2 -RESP PCR PANEL NOT DETECTED
[2023-04-12] MEDS ORDERED: AZITHROMYCIN INJ 500 MG in SODIUM CHLORIDE 0.9% 250 ML IV STA (02:00)
[2023-04-12] MEDS ORDERED: cefTRIAXone 2 GM in SODIUM CHLORIDE 0.9% MINIBAG 100 ML IV STA (02:00)
[2023-04-12] MEDS ORDERED: cefTRIAXone 2 GM VIAL ONE (02:23)
[2023-04-12 02:40] VITALS: O2SAT 94
[2023-04-12 04:06] VITALS: BP 134/80
== END 2023-04-12 04:35 | disposition home or self-care (01) ==
LOC: EDUNIT# → ED 22:17
DX: R07.89 Other chest pain (principal); J18.9 Pneumonia, unspecified organism; M54.9 Dorsalgia, unspecified; Z20.822 Contact with and (suspected) exposure to COVID-19
CPT/HCPCS: 36415; 80053; 83605; 83690; 84484; 85025; 85379; 87040; 87633; 93005; 96365; 96366; 96368; A9270